=== PATIENT | female | born 1980 | race Caucasian/White ===

== ENCOUNTER → 2017-05-27 | Outpatient (CLI) | payer BC | LOC: LAB 12:07 | DX: N76.4 Abscess of vulva (principal) ==

== ENCOUNTER → 2017-08-20 | Outpatient (CLI) | payer BC | LOC: LAB 11:23 | DX: R07.9 Chest pain, unspecified (principal); R91.1 Solitary pulmonary nodule; I10 Essential (primary) hypertension | CPT/HCPCS: Q9967 ==